=== PATIENT | female | born 1975 | race Caucasian/White ===

== ENCOUNTER → 2017-11-12 06:59 | Outpatient (CLI) | payer MEDICAID, SELFPAY ==
--- OUTSIDE RECORDS SUMMARY | 2017-11-12 07:04 | XMS RPT_ITS ---
:1975 Author Organization [facility] Care Team Providers Name Role Phone MATEUSZ BAY, MAXIMUS Peralta Attending Unavailable MAXIMUS CHILD MD Attending Unavailable LENARD JOHNSON) Attending Unavailable LENARD JOHNSON) Referring Unavailable LENARD JOHNSON) Referring Unavailable Behzad Bush Attending Unavailable Behzad Bush Primary Care Unavailable Marissa Schmitt Attending Unavailable Behzad Bush Primary Care Unavailable Duke Johnson Primary Care Unavailable SREEDHAR VIEIRA Attending Unavailable SREEDHAR VIEIRA Referring Unavailable PROBLEMS PROBLEMS DATE TYPE CONDITION / CODE ATTENDING STATUS SOURCE 11/12/2017 Unknown R07.9 - Chest pain, SREEDHAR VIEIRA Active [facility] unspecified / Community R07.9(ICD-10) Hospital Repository 10/20/2017 Active Cannabis use, NA Active [facility] unspecified, [facility] [place] uncomplicated / Repository F12.90(ICD-10) 10/20/2017 Active Other chest pain / NA Active [facility] R07.89(ICD-10) [facility] [place] Repository 10/20/2017 Active Obesity, NA Active [facility] unspecified / [facility] [place] E66.9(ICD-10) Repository 02/17/2017 Unknown ESSENTIAL (PRIMARY) Behzad Bush Active [facility] HYPERTENSION / Community I10(ICD-10) Hospital Repository PROCEDURES PROCEDURES No Procedure Records FoundRESULTS RESULTS CBC Collected: 10/20/2017 Status: F Source: [place] 12:48 PM [facility] MAIN CAMPUS REPOSITORY TYPE CODE TESTS RESULT OUT OF REFERENCE UNITS RANGE LAB WBC 3.70-11.00 k/uL WBC 9.14 LAB RBC High 3.90-5.20 m/uL RBC 5.45 LAB HGB High 11.5-15.5 g/dL Hemoglobin 16.0 LAB HCT High 36.0-46.0 % Hematocrit 49.5 LAB MCV 80.0-100.0 fL MCV 90.8 LAB MCH 26.0-34.0 pG MCH 29.4 LAB MCHC 30.5-36.0 g/dL MCHC 32.3 LAB RDWCV 11.5-15.0 % RDW-CV 13.2 LAB PLTCT 150-400 k/uL Platelet 346 Count LAB MPV 9.0-12.7 fL MPV 11.0 LAB ABSNUC <0.01 k/uL Absolute nRBC <0.01 Performed By: #### CBC, CMP, LIPB, HBA1C ####[facility] [address] [place], [place] [phone] COMP METABOLIC PANEL Collected: 10/20/2017 Status: F Source: [place] 12:48 PM [facility] REPOSITORY TYPE CODE TESTS RESULT OUT OF REFERENCE UNITS RANGE LAB TP 6.3-8.0 g/dL Protein, Total 7.4 LAB ALB 3.9-4.9 g/dL Albumin 4.5 LAB CA 8.5-10.2 mg/dL Calcium, Total 9.5 LAB TBIL 0.2-1.3 mg/dL Bilirubin, 0.5 Total LAB ALKP 32-117 U/L Alkaline 116 Phosphatase LAB AST 13-35 U/L AST 17 LAB GLU 74-99 mg/dL Glucose 95 Result Comment: The [place] Diabetes Association (ADA) provides guidance for cutoff values for fasting glucose and random glucose. The ADA defines fasting as no caloric intake for at least 8 hours. Fasting plasma glucose results between 100 to 125 mg/dL indicate increased risk for diabetes (prediabetes).Fasting plasma glucose results greater than or equal to 126 mg/dL meet the criteria for diagnosis of diabetes. In the absence of unequivocal hyperglycemia, results should be confirmed by repeat testing. In a patient with classic symptoms of hyperglycemia or hyperglycemic crisis, random plasma glucose results greater than or equal to 200 mg/dL meet the criteria for diagnosis of diabetes.Reference: Standards of Medical Care in Diabetes 2016 , [place] [employer]. Diabetes Care. 2016.39(Suppl 1). LAB BUN 7-21 mg/dL BUN 9 LAB CRET 0.58-0.96 mg/dL Creatinine 0.85 LAB NA 136-144 mmol/L Sodium 142 LAB K 3.7-5.1 mmol/L Potassium 3.9 LAB CL 97-105 mmol/L Chloride 103 LAB CO2 22-30 mmol/L CO2 22 LAB AGAP 9-18 mmol/L Anion Gap 17 LAB ALT 7-38 U/L ALT 16 LAB GFRAA eGFR- Amer. >60 LAB GFRNAA . eGFR-All Other Races >60 Result Comment: eGFR (Estimated GFR) Units of measure: mL/min/1.73 meters squaredeGFR is derived from the reexpressed MDRD Study equation using the following parameters: serum creatinine, age, gender and race. The creatinine assay has been calibrated to be traceable to IDMS.An eGFR <60 mL/min/1.73m2 for >3 months is consistent with chronic kidney disease. Refer to KDOQI guidelines for clinical interpretation.In patients with unstable renal function, e.g. those with acute kidney injury, the eGFR may not accurately reflect actual GFR. Performed By: #### CBC, CMP, LIPB, HBA1C ####[facility] [place], [place] [phone] LIPID PANEL, BASIC Collected: 10/20/2017 Status: F Source: [place] 12:48 PM [facility] REPOSITORY TYPE CODE TESTS RESULT OUT OF REFERENCE UNITS RANGE LAB CHOL <200 mg/dL Cholesterol 190 Result Comment: <200 mg/dL, Desirable 200-239 mg/dL, Borderline high>239 mg/dL, High LAB TRIGLY <150 mg/dL Triglyceride 116 Result Comment: <150 mg/dL, Normal 150-199 mg/dL, Borderline high 200-499 mg /dL, High>499 mg/dL, Very high LAB HDL Low >39 mg/dL HDL-Cholesterol 38 Result Comment: 40-59 mg/dL, Acceptable>59 mg/dL, High: Negative risk factor for coronary heart disease<40 mg/dL, Low: Positive risk factor for coronary heart disease LAB LDL High <100 mg/dL LDL-Cholesterol 129 Result Comment: <100 mg/dL, Optimal 100-129 mg/dL, Near optimal/above optimal 130-159 mg/dL, Borderline high 160-189 mg/dL, High>189 mg/dL, Very highSecondary prevention optimal LDL Cholesterol levels are recommended to be < 70 mg/dL LAB NONHDL High <130 mg/dL Non HDL Cholesterol 152 Result Comment: <130 mg/dL, Optimal 130-159 mg/dL, Near optimal/above optimal 160-189 mg/dL, Borderline high 190-219 mg/dL, High>219 mg/dL, Very highSecondary prevention optimal non HDL Cholesterol levels are recommended to be < 100 mg /dL LAB FT hrs Fasting Time 13 LAB VLDL <30 mg/dL VLDL Cholesterol 23 LAB TCHDL <5.10 TC:HDL Ratio 5.00 LAB LDLHDL High <2.54 LDL:HDL Ratio 3.39 Result Comment: Reference:1. National Cholesterol Education Program ATP III Guideline At-A-Glance Quick Desk Reference: National Heart, Lung, and Blood [place]. National Institutes of Health. 2001: NIH Publication No. 01-3305.2. An International Atherosclerosis Society position paper: global recommendations for the management of dyslipidemia: executive summary, Atherosclerosis. 2014: 232(2):410-413. Performed By: #### CBC, CMP, LIPB, HBA1C ####[facility] [address] [place], [place] [phone] HEMOGLOBIN A1C Collected: 10/20/2017 Status: F Source: [place] 12:48 PM [facility] REPOSITORY TYPE CODE TESTS RESULT OUT OF REFERENCE UNITS RANGE LAB HGBA1C 4.3-5.6 % Hemoglobin 5.2 A1c LAB HBA0 mg/dL Est. Average 103 Glucose Result Comment: eAG: (Estimated average glucose) is a calculated value from HgbA1c and is sales representative door to door of the average blood glucose level in the last 2-3 month period. Performed By: #### CBC, CMP, LIPB, HBA1C ####[facility] [place], [place] [phone] TOXICOLOGY SCREEN,UR Collected: 10/20/2017 Status: F Source: [place] 12:47 PM [facility] REPOSITORY TYPE CODE TESTS RESULT OUT OF REFERENCE UNITS RANGE LAB UPCP2 Negative Negative Phencyclidin e, Urine Result Comment: Cutoff threshold at 25 ng/mL.Cross reactivity with other substances can occur with immunoassay screening. In house validation testing showed 80% of preliminary positive samples were confirmed by mass spectrometry (high specificity, quantitative) testing. Greater than 99% of negative screen results were confirmed by mass spectrometry (high specificity, quantitative) testing. LAB UBENZ2 Negative Benzodiazepines, Ur Negative Result Comment: Cutoff threshold at 200 ng/mL.Cross reactivity with other substances can occur with immunoassay screening. In house validation testing showed 90% of preliminary positive samples were confirmed by mass spectrometry (high specificity, quantitative) testing. 80% of negative screen results were confirmed by mass spectrometry (high specificity, quantitative) testing. LAB UCOC2 Negative Cocaine, Negative Urine Result Comment: Cutoff threshold at 300 ng/mL.Cross reactivity with other substances can occur with immunoassay screening. In house validation testing showed greater than 99% of preliminary positive samples were confirmed by mass spectrometry (high specificity, quantitative) testing. Greater than 99% of negative screen results were confirmed by mass spectrometry (high specificity, quantitative) testing. LAB UAMPH2 Negative Amphetamines, Urine Negative Result Comment: Cutoff threshold at 1000 ng/mL.Cross reactivity with other substances can occur with immunoassay screening. In house validation testing showed 70% of preliminary positive samples were confirmed by mass spectrometry (high specificity, quantitative) testing. Greater than 99% of negative screen results were confirmed by mass spectrometry (high specificity, quantitative) testing. LAB UTHC2 Abnormal Negative Cannabinoids, Preliminary Alert Urine positive. Result Comment: Cutoff threshold at 50 ng/mL.Cross reactivity with other substances can occur wtih immunoassay screening. In house validation testing showed 80% of preliminary positive samples were confirmed by mass spectrometry (high specificity, quantitative) testing. Greater than 99% of negative screen results were confirmed by mass spectrometry (high specificity, quantitative) testing. LAB UOPI2 Negative Opiates, Negative Urine Result Comment: Cutoff threshold at 300 ng/mL.Cross reactivity with other substances can occur wtih immunoassay screening. In house validation testing showed greater than 99% of preliminary positive samples were confirmed by mass spectrometry (high specificity, quantitative) testing. 90% of negative screen results were confirmed by mass spectrometry (high specificity, quantitative) testing. LAB UBARB2 Negative Barbiturates, Urine Negative Result Comment: Cutoff threshold at 200 ng/mL.Cross reactivity with other substances can occur with immunoassay screening. In house validation testing showed greater than 99% of preliminary positive samples were confirmed by mass spectrometry (high specificity, quantitative) testing. Greater than 99% of negative screen results were confirmed by mass spectrometry (high specificity, quantitative) testing. LAB UETOH <11 mg/dL Ethanol, <11 Urine LAB UOXYC Negative Oxycodone, Negative Urine Result Comment: Cutoff threshold at 100 ng/mL.Cross reactivity with other substances can occur with immunoassay screening. In house validation testing showed greater than 99% of preliminary positive samples were confirmed by mass spectrometry (high specificity, quantitative) testing. Greater than 99% of negative screen results were confirmed by mass spectrometry (high specificity, quantitative) testing.Comment:Immunoassay screen only. Detection of any drug(s) in this urine toxicology panel is presumptive only. Intended use is for evaluation of suspected acute overdose. These tests are for medical purposes only and should not be used for compliance monitoring, legal, or forensic use.If clinically indicated, confirmation by high specificity, quantitative methodology may be requested on the same specimen through Client Services ([phone]) if contacted within 48 hours of initial testing.These tests were developed and their performance characteristics determined by [facility]'s [facility] [place] ([facility]). They have not been cleared or approved by the FDA. [facility] is regulated under CLIA as qualified to perform high complexity testing.These tests are used for clinical purposes. They should not be regarded as investigational or for research. Performed By: #### UTOX2 ####[facility] [place], [place] [phone] QUANT PAIN PANEL, Collected: 10/20/2017 Status: F Source: [place] 12:47 PM [facility]AMPUS REPOSITORY TYPE CODE TESTS RESULT OUT OF REFERENCE UNITS RANGE LAB UQCANN High <16 ng/mL 650 Cannabinoid, Urine Result Comment: Tetrahydrocannabinol carboxylic acid (THCA) is a metabolite of clapr-0-oygdadexlkeierdbicqt which is the main active component of marijuana. Presence of THCA indicates use of marijuana. LAB UQBNZL <24 ng/mL Benzoylecognine, Ur <24 Result Comment: Benzoylecognine is a metabolite of cocaine. LAB UQACMR <5 ng/mL 6-Acetylmorphine, Ur <5 Result Comment: 6-REGINA (6-monoacetylmorphine, also known as 6-acetylmorphine) is a unique metabolite of heroin. Presence of 6-REGINA indicates use of heroin. 6-REGINA is further metabolized to morphine and absence of 6-REGINA does not rule out the use of heroin. LAB UQAMPH <5 ng/mL Amphetamine, Urine <5 LAB UQMAMP <8 ng/mL Methamphetamine, Ur <8 LAB UQBUPR <20 ng/mL Buprenorphine, Ur <20 LAB UQNBUP <20 ng/mL Norbuprenorphine, Ur <20 Result Comment: Norbuprenorphine is the primary active metabolite of buprenorphine. LAB UQMTHD <16 ng/mL Methadone, <16 Urine LAB UQEDDP <6 ng/mL EDDP, Urine <6 Result Comment: EDDP is a metabolite of methadone. LAB UQTRAM <25 ng/mL Tramadol, <25 Urine LAB UQDTRM <20 ng/mL <20 Desmethyltramado l,Ur Result Comment: Desmethyltramadol is a metabolite of tramadol. LAB UQFNTL <6 ng/mL Fentanyl, Urine <6 LAB UQNFTL <6 ng/mL Norfentanyl, <6 Urine Result Comment: Norfentanyl is a metabolite of fentanyl. LAB UQCODE <11 ng/mL Codeine, <11 Urine LAB UQMORP <10 ng/mL Morphine, <10 Urine Result Comment: Morphine is a metabolite of codeine and heroin. LAB UQDCDN <5 ng/mL Dihydrocodeine, Ur <5 LAB UQHCOD <8 ng/mL Hydrocodone, Urine <8 Result Comment: Hydrocodone is a metabolite of dihydrocodeine. LAB UQOXYC <5 ng/mL Oxycodone, <5 Urine LAB UQHMOR <5 ng/mL Hydromorphone, <5 Ur Result Comment: Hydromorphone is a metabolite of hydrocodone. LAB UQOXYM <5 ng/mL Oxymorphone, Urine <5 Result Comment: Oxymorphone is a metabolite of oxycodone. LAB UQCREA >19 mg/dL Creatinine, >50 Urine LAB UQPH 4-10 pH, Urine 4-10 LAB UQSPGR 1.005-1.020 Specific 1.005-1.020 [place],Ur LAB UQOXID Negative Oxidants, Urine Negative LAB UQSPQ Specimen Specimen Quality quality results within acceptable limits. LAB UQNOTE Note This test is for Medical use only. Result Comment: This test was developed and its performance characteristics determined by [facility]'s [facility] [place] (-[facility]).It has not been cleared or approved by the FDA. [facility] is regulated under CLIA as qualified to perform high-complexity testing.This test is used for clinical purposes. It should not be regarded as investigational or for research. Performed By: #### UQNTPP ####[facility] [address] [place], [place] [phone] PROGRESS Observed: 10/20/2017 Status: COMPLETED Source: [place] 12:37 PM [facility] REPOSITORY HNO ID: [id number]: Ken Nickice: (none) Author Type: (none)Type: Progress NotesFiled: 10/20/2017 1:51 PMNote Text:42 year old female here for INACTIVATED INFLUENZA VACCINE.[id number] SeasonPatient is identified by name and date of : Yes [] CONTRAINDICATIONS colorenhanced sectionAge less than 6 months? NoAllergy to eggs, chicken, chicken feathers, or chicken dander? NoAllergy to thimerosal (a preservative) or formaldehyde? NoHistory of severe reaction to any vaccine component or a previous dose ofinfluenza vaccination? NoHistory of Guillain-Rolla Syndrome within 6 weeks after a previousinfluenza vaccine? NoCurrent moderate or severe illness? NoCurrent temperature greater or equal to 100.4F? NoHistory of Bone Marrow Transplant in past 6 months or solid organtransplant in the past 3 months ? No [] VERIFICATIONcolor enhanced sectionWas the answer Yes for any of the above contraindications? Nocontraindications present. Acceptable to proceed with vaccine.Patient/ guardian agrees the above answers are true to the best of theirknowledge? YesFlu vaccine information sheet given? YesSee immunization activity in [facility] for details of immunizationsadminstered today.Patient age: [age] year old For The 2802-0535 Flu Season 6-35 months old: Fluzone 0.25 ml - IM (Preservative Free)3 years of age: Fluzone 0.5 ml - IM (Preservative Free)3 years and older: Fluzone 0.5 ml- IM-(with Preservatives)65+ years old: Fluzone High-Dose 0.5 ml - IM ( Preservative Free)REMEMBER: If patient is less than 9 years of age and this is the firstvaccine of Influenza to be received in any flu season, they should receivea second dose in one months time. PROGRESS Observed: 10/20/2017 Status: COMPLETED Source: [place] 11:12 AM [facility] REPOSITORY O ID: [id number]: Lenard Dawson) Nicolette : (none)Author Type: PhysicianType: Progress NotesFiled: 10/20/2017 1:51 PMNote Text:Chief ComplaintNo chief complaint on file.Sriram HOOD is a 42 year old female who presents here today pending sale to [facility]. Patient states that she was previously seeing in [facility]. States that she was previously treated with benzosfor anxiety symptoms and tested positive for marijuna on random drugscreen. Feels like Dr. Bush was targeting her and no longer wants to seehim. Admits to occasional marijuana use and was at [employer] recentlywhere people around her were smoking marijuana.Patient has history of depression which has been worse over the last 3weeks due to stressors at home. Admits to: feelingdown/depressed/hopeless, decreased energy/interest, difficultyconcentrating, insomnia, feeling of guilt, decreased appetite. Deniesthoughts of harming self or others. Also admits to anxiety symptoms withexcessive worrying, insomnia, racing thoughts, and panic symptoms withtremors and tachycardia. Taking Paxil as prescribed. Is not seeingcounseling or psychiatry today.Complaining of recent chest pain. Most recent episodes have felt likestabbing in center of chest radiating to neck associated with nausea,diaphoresis, lighthededness, SOB, and improved with rest. Hascardiologist, previously Dr. Child, now seeing her daughter. Has notdiscussed these symptoms with their office.Due for Tdap, Pneumovax, and influenza vaccine today. Has not had bloodwork done recently. Has not had mammogram since she turned 42 years oldand has family history of breast cancer with sister recently diagnosed.Past medical history, appointments, medications, allergies reviewed.Previous Medical HistoryPAST MEDICAL HISTORYDiagnosis Date- PMH - PAST MEDICAL HISTORY OF depression- PMH - PAST MEDICAL HISTORY OF kidney stones (able to pass on own)- PMH - PAST MEDICAL HISTORY OF Migraines- Unspecified asthma(493.90)Previous Surgical HistoryPAST SURGICAL HISTORYProcedure Laterality Date- APPENDECTOMY 2005- LAPAROSCOPIC CHOLEYCYSTECTOMY 06/2004 Cholecystectomy, lap- LIGATE FALLOPIAN TUBE 2000 Tubal ligation, lap- PAST SURGICAL HISTORY OF 2000 hysterectomyFamily HistoryFAMILY HISTORYProblem Relation Age of Onset- Prostate Cancer Maternal Grandfather- Heart Maternal Grandmother- Hypertension Paternal Grandfather- Diabetes Paternal Grandfather- Diabetes Maternal Aunt- Diabetes Paternal GrandmotherPatient AllergiesALLERGIESAllergen Reactions- Aspirin GI Upset- Cylert [Pemoline]- E-Mycin [Erythromyc* Vomiting- Morphine Hives- Penicillins Hives- Zithromax Z-Zan [Az* GI UpsetCurrent MedicationsCurrent Outpatient Prescriptions on File Prior to Visit:TEMAZEPAM 30 MG CAP Take one(1) tablet daily at bedtime as needed forsleepparoxetine hcl(PAXIL 40 MG TAB) Take one(1) tablet daily.DICYCLOMINE 10 MG CAP Take one(1) capsule three times daily.tizanidine hcl(ZANAFLEX 4 MG TAB) Take one(1) tablet four (4) times daily.DICLOFENAC 75 MG TAB, DELAYED RELEASE Take one(1) tablet two(2) timesdaily with food (Patient not taking: Reported on 10/20/2017)fluticasone propionate(FLONASE 50 MCG/ACTUATION NASAL SPRAY) Two sprayseach nostril daily, rinse mouth after (Patient not taking: Reported on10/20/2017)fexofenadine hcl(BOB 180 MG TAB) Take one(1) tablet daily. (Patientnot taking: Reported on 10/20/2017)ALBUTEROL 90 MCG/ACTUATION AEROSOL INHALER Use as directed four(4) timesdaily. (Patient not taking: Reported on 10/20/2017)COMPOUNDED PRESCRIPTION AIR CONDITIONER DX: CHRONIC ASTHMA(Patient not taking: Reported on 10/20/2017)No current facility- administered medications on file prior to visit.Social HistorySocial History Marital status : Single Spouse name: Years of education: Number of children:Social History Main Topics Smoking status: Current Every Day Smoker Packs/day: 1.00 Years: 15.00 Types: Cigarettes Smokeless status: Never Used Comment: quit 10/07 Alcohol use: No Drug use: Yes Special: MarijuanaReview of SymptomsREVIEW OF SYSTEMSGENERAL: No weight loss, malaise or feversNECK: Negative for lumps, goiter, pain and significant neck swellingRESPIRATORY: Negative for cough, hemoptysis, wheezing, COPD, dyspnea orshortness of breathCARDIOVASCULAR: Chest painGI: No nausea, vomiting, or diarrheaSKIN: Negative for lesions, rash, and itchingEXAM:BP 136/88 Pulse 64 Resp 14 Ht 158.8 cm (5' 2.5) Wt 88.9 kg (196lb) BMI 35.28 kg/j0Feisjoe Appearance: Well appearing, alert, in no acute distress,well-hydrated, well nourished..Lungs: Lungs clear to auscultation. No wheezing, rhonchi, rales.Heart: RRR without murmur, gallop, or rubs. No ectopy.Abdomen: Normal abdominal exam, Abdomen soft, non-tender. Bowel soundsnormal. No masses, organomegaly.Extremities: No deformities, edema, skin discoloration, clubbing orcyanosis. Good capillary refill. .Health Maintenance ListTETANUS due on 1988ONE PNEUMOVAX PRIOR TO AGE 65 due on 1996PAP EVERY 5 YEARS due on 2007HPV EVERY 5 YEARS due on 2007INFLUENZA(1) due on 2016MAMMOGRAM due on 2017Data reviewedEKG: sinus bradycardia at 58 bpm with short OH and nonspecific STabnormality (inverted t wave in V2)ASSESSMENT/PLAN:1. Moderate episode of recurrent major depressive disorder (HCC) - ICD9:296.32, ICD10: F33.1 ( primary diagnosis)Increase paxil to 50 mg daily. Will refer to counseling and psychiatry forfurther evaluation and treatment. To call if not improving in next 4-6weeks with increased dose.- CONSULT TO PSYCHOLOGY- CONSULT TO PSYCHIATRY2. ALEXSANDER ( generalized anxiety disorder) - ICD9: 300.02, ICD10: F41.1See above. Advised I cannot give controlled substances such as benzos ifshe is using illicit substances.- CONSULT TO PSYCHOLOGY- CONSULT TO PSYCHIATRY3. Other chest pain - ICD9: 786.59, ICD10: R07.89Chest pain of unclear etiology, patient with significant risk factor(s) offamily history of early coronary heart disease, obesity and smokingEKG shows ST changes as listed above. Will fax over to customer success intern'soffice and have patient follow up with their office for stress testing ifthese are new changes. Discussed ED evaluation if symptoms return.- ECG COMPLETE W INTERPRETATION- XR CHEST 2V FRONTAL/LAT- CBC- COMP METABOLIC PANEL4. Screening mammogram, encounter for - ICD9: V76.12, ICD10: Z12.31- Set up for mammogram, yearly mammogram recommended- REGINA SCREENING5. Marijuana use - ICD9: 305.20, ICD10: F12.90Advised cessation.- TOX SCREEN ROUT UR- PAIN PANEL, UR QUANT6. Obesity, Class II, BMI 35-39.9 - ICD9: 278.00, ICD10: E66.9Discussed improved diet and exercise.- LIPID PANEL BASIC- HGB A1C7. Need for vaccination - ICD9: V05.9, ICD10: Z23- PNEUMOCOCCAL IMMUNIZATION PPSV 23- TDAP VACCINE AGE 7+ IM- INFLUENZA VACCINE QUADRIVALENT AGE 3 YRS PLUS + IM8. DDD (degenerative disc disease), thoracolumbar - ICD9: 722.51, ICD10:M51.35Will obtain records from previous PCP. Will hold off on refilling Zanaflexuntil records return.9. DDD (degenerative disc disease), cervical - ICD9: 722.4, ICD10: M50.30Will obtain records from previous PCP. Will hold off on refilling Zanaflexuntil records return.10. Mild intermittent asthma without complication - ICD9: 493.90, ICD10:J45.20Mild intermittent Asthma stable- Albuterol MDI 2 puffs with spacer prn- Avoidance of triggers recommendedI spent 50 minutes in the visit, with more than 50% of the [id number] time of the visit in counseling / coordination of care.Lenard Johnson MD EMERGENCY DEPARTMENT Observed: 03/06/2017 Status: F Source: [place] SUMMARY 7:23 AM [facility] Records [address] [place] [place] [address]Mhafhujkq Department Occkyts98/08/17 0721MR#: [id number] Acct: [id number]: MARLENI HOOD Rep #: [id number]: 1974 41 From: Marissa Schmitt MDPCP: Behzad Bush MD Status: DEP ER - ER Visit SummaryDate of Service: 03/06/17Chi Complaint: Left knee painHistory of Present Illness: The patient is a 41 F who states she tripped on a curb earliertoday and fell landing on her left knee. She has had increasing pain and swelling. She didtake ibuprofen prior to arrival. She has been able to ambulate on her leg.Physical Examination: Vital signs are unremarkable.Head neck examination is unremarkable with no sign of trauma.Heart is regular rate and rhythm.Lungs are clear with good air movement throughout.Abdomen is soft and nontender.Lower extremity examination was ecchymosis and edema over the left anterior knee. She is ableto straight leg raise her foot off the bed. She has strong distal pulses. She has no calftenderness.Test Results: Left knee x-ray shows soft tissue swelling anteriorly. There are no osseousabnormalities noted.Emergency Department Course and Treatment: She was given [place] here for pain. She is given anAce wrap and referred to Ortho for follow-up if not improved.Disposition: HomeImpression: Fall with left knee contusionED Disposition- Plan for ED Patient:Disposition: Home or Assisted LivingChief Complaint: Lower Extremity InjuryInstructions: ED Sprain KneePrescriptions:Hydrocodone Bitart/Apap 5-325 [[place] 5/325] 1 - 2 tablet PO Q6H PRN PRN #12 tabletPRN Reason: PainReferrals:Behzad Bush MD [Primary Care Provider] - 1-2 WeeksWhat to do if you have ProblemsFor any increased pain, shortness of breath, bleeding, nausea or vomiting, chest pain, or anyunexpected problems, contact your Primary Care Provider. Call [facility] ([phone])or report to the closest Emergency Room.Call 911 if necessary.03/06/17 0723 <Electronically signed by Marissa Schmitt MD>Date Marissa Schmitt MDCosigner Signature (If Indicated): Date CC: Behzad Bush MD DISCHARGE INSTRUCTION Observed: 02/17/2017 Status: F Source: HU 5:57 PM [facility] RE[facility]ITORY [facility] [address] [place] [address]Dlvekqcol Tsslmaxqbht99/21/17 1755MR#: [id number] Acct: [id number]: SHARRIMARLENI Rep #: [id number]: 1975 41 From: Marissa Schmitt MDPCP: Behzad Bush MD Status: REG ERED Disposition- Plan for ED Patient:Disposition: Home or Assisted LivingChief Complaint: Lower Extremity InjuryInstructions: ED Sprain KneePrescriptions:Hydrocodone Bitart/ Apap 5-325 [[place] 5/325] 1 - 2 tablet PO Q6H PRN PRN #12 tabletPRN Reason: PainReferrals:Behzad Bush MD [Primary Care Provider] - 1-2 WeeksWhat to do if you have ProblemsFor any increased pain, shortness of breath, bleeding, nausea or vomiting, chest pain, or anyunexpected problems, contact your Primary Care Provider. Call [facility] ([phone])or report to the closest Emergency Room.Call 911 if necessary.02/17/171756 <Electronically signed by Marissa Schmitt MD> Date Marissa Schmitt [facility] Signature (If Indicated): Date CC: Behzad Bush MD KNEE 4 OR MORE Observed: 02/17/2017 Status: F Source: HU VIEWS 5:02 PM [facility] REPOSITORY [facility]ITALImaging [address] [place] [address]Qmdkruq 4dKnee 4 or More ViewsMR#: [id number] Acct: [id number]: MARLENI HOOD Rep #: [id number]: 1975 F 41 From: Marissa Mora MDPCP: Behzad Bush MD Status : REG ERStudy: Knee 4 or More Views Date of Exam: 02/17/17Exam# [id number] Ordering Dr: Marissa Schmitt MDSTUDY: X-RAY - LEFT KNEEREASON FOR EXAM: Female, 41 years old. Pain after fallTECHNIQUE: Four view(s) of the knee.COMPARISON: None. FINDINGS:Normal visualized distal femur. Normal visualized proximal tibia andfibula. Normal proximal tibiofibular articulation.Normal medial femorotibial compartment. Normal lateral femorotibialcompartment. Normal patellofemoral articulation. There is no fullnessabove the patella.There is soft tissue swelling below the patella. ORDER #: [id number] RAD/Knee 4 or More ViewsIMPRESSION:No acute osseous abnormalities are seen in the left knee. There is markedsoft tissue swelling anteriorly.Electronically Signed:Marissa Mora MD at 17:44 [facility] [phone], Service support , YB: Marissa Schmitt MD; Behzad Bush MD Journeyman Electrician:Signed CBC-COMPLETE BLOOD CNT Collected: 12/02/2016 Status: F Source: HU NO DIFF 10:49 AM [facility] REPOSITORY TYPE CODE TESTS RESULT OUT OF RANGE REFERENCE UNITS LAB L100.1000 Normal 4.4-11.0 K/mm3 WBC 9.9 LAB L100.1200 High 4.2-5.4 M/mm3 RBC 5.46 LAB L100.1300 High 12.0-15.0 g/dl HGB 16.2 LAB L100.1400 High 37-47 % HCT 48.9 LAB L100.1500 Normal 81-99 fL MCV 89.6 LAB L100.1600 Normal 27.0-32.0 pg MCH 29.7 LAB L100.1700 Normal 32-36 g/gl MCHC 33.1 LAB L100.1810 Normal 11.6-14.6 % RDW 13.2 CV LAB L100.1820 Normal 35.1-43.9 fl RDW 42.7 SD LAB L100.1900 Normal 150-450 K/mm3 PLT 360 LAB L100.2000 Normal 6.2-12.0 fl MPV 10.2 Performed By: #### L100.0500 ####[facility] [address] [place], [place], [address] COMPREHENSIVE METABOLIC Collected: 12/02/2016 Status: F Source: [facility] 10:49 AM [facility] REPOSITORY TYPE CODE TESTS RESULT OUT OF RANGE REFERENCE UNITS LAB L501.0100 Normal 70-110 mg/dL GLU 109 LAB L501.1000 Normal 7-18 mg/dL BUN 13 LAB L501.1100 High 0.55-1.02 mg/dL 1.06 CREAT,SERUM Result Comment: The validity of the calculated GFR AND GFRAA in patients over70 years has not been determined. Clinical correlation isessential. LAB L501.1110 Normal >60 mL/min EST GFR 61 Result Comment: Non- GFR Calc LAB L501.1115 Normal >60 mL/min EST GFR - 74 AA Result Comment: GFR Calc LAB L501.1300 Normal 10-20 RATIO BUN/CRE 12.3 LAB L501.1500 Normal 6.4-8.2 g/dL T PROT 7.6 LAB L501.1800 Normal 3.4-5.0 g/dL ALB 3.9 LAB L501.1950 High 2.3-3.5 g/dL GLOB 3.7 LAB L501.2000 Normal 0.9-2.4 RATIO A/G 1.1 LAB L501.2200 Normal 8.5-10.1 mg/dL CA 9.1 LAB L501.4100 Low 15-37 U/L AST 12 LAB L501.4305 High 45-117 U/L ALK P 133 LAB L501.4405 Normal 12-78 U/L ALT 20 LAB L501.4600 Normal 0.20-1.00 mg/dL T BILI 0.30 LAB L501.5300 Normal 136-145 mmol/L NA 138 LAB L501.5600 Normal 3.5-5.1 mmol/L K 4.2 LAB L501.5900 Normal 98-107 mmol/L CL 102 LAB L501.6100 Normal 21.0-32.0 mmol/L CO2 27.0 LAB L501.6200 Normal 5-15 GAP 9 Performed By: #### L500.4050, L500.4100 ####[facility] [address] [place], [place], [address] LIPID PROFILE Collected: 12/02/2016 Status: F Source: [place] 10:49 AM [facility] REPOSITORY TYPE CODE TESTS RESULT OUT OF RANGE REFERENCE UNITS LAB L501.4900 High 200 mg/dL CHOL 214 Result Comment: <200 mg/dL Desirable 200-240 mg/dL Borderline >240 mg/dL High Risk LAB L501.5000 Normal mg/dL TRIG 148 Result Comment: The drugs N-Acetylcysteine and Metamizole may falsely deressthis assay.Serum Triglycerides Reference Interval Normal <150 mg/dL Borderline high 150 - 199 mg/ dL High 200 - 499 mg/dL Very High > or = 500 mg/dL LAB L501.6400 Normal mg/dL HDL 51 Result Comment: The drugs N-Acetylcysteine and Metamizole may falsely deressthis assay. Reference Range HDL <40 mg/dL Low HDL Cholesterol HDL >or= 60 mg/dL High HDL Cholesterol LAB L501.6500 High 0-130 mg/dL LDL 133 LAB L501.6600 Normal 5-40 mg/dL VLDL 30 Performed By: #### L500.4050, L500.4100 ####[facility] [address] [place], [place], [address] ALLERGIES ALLERGIES DATE TYPE / CODE NAME / CODE REACTION SEVERITY SOURCE 02/17/2017 Drug Penicillins/[id number] Hives Unknown Hu Allergy/416 476(RXNORM) [facility] 302035([facility]) Repository 02/17/2017 Drug morphine/[id number] Hives Unknown Trevor Allergy/416 (RXNORM) Community 534973([facility] ED CT) Repository 02/17/2017 Drug erythromycin Hives Unknown Trevor Allergy/416 base/[id number](RXN Community 245873([facility] ED CT) Repository 02/17/2017 Drug Penicillins/[id number] Hives Trevor Allergy/416 476(RXNORM) Community 873290([facility] ED CT) Repository 02/17/2017 Drug morphine/[id number] Hives Hu Allergy/416 (RXNORM) Community 051242([facility] ED CT) Repository 02/17/2017 Drug erythromycin Hives Trevor Allergy/416 base/[id number](RXN Community 265203([facility] ED CT) Repository 2008 DRUG AZITHROMYCIN GI UPSET [facility] INGREDI/[address] [place] 940683(SNOM Repository ED CT) 07/22/2005 DRUG ASPIRIN GI UPSET [facility] INGREDI/[address] [place] 293105(SNOM Repository ED CT) 07/22/2005 DRUG PEMOLINE [facility] INGREDI/[address] [place] 976076(SNOM Repository ED CT) 07/22/2005 DRUG/419337 ERYTHROMYCIN Vomiting [facility] 003(SNOMED [address] [place]) Repository 07/22/2005 DRUG MORPHINE HIVES [facility] INGREDI/[address] [place] 022482(SNOM Repository ED CT) 07/22/2005 Drug PENICILLINS HIVES [facility] Class/03929 [address] [place] 1003(SNOMED Repository CT) ENCOUNTERS ENCOUNTERS ADMIT/DISCHARGE ACCOUNT NUMBER ADMITTING ENCOUNTER LOCATION SOURCE CLASS 11/12/2017 [id number] Ambulatory [facility] ding:[facility] Repository 10/20/2017/10/20/19 [id number] Ambulatory [address] [place] Repository 10/20/2017/10/20/19 [id number] Ambulatory [address] [place] Repository 10/20/2017/10/29/19 [id number] Ambulatory [address] [place] Repository 06/14/2017 [id number] Ambulatory BBuilding:[facility] Repository 06/10/2017/06/10/20 [id number] Ambulatory [address] ding:[facility] Repository 02/17/2017/02/18/20 [id number] Emergency Hu [address] ding:ED Repository 12/02/2016 [id number] Ambulatory [facility] ding:LAB Repository PAYERS PAYERS ENCOUNTER GUARANTOR PAYER SUBSCRIBER SOURCE 11/12/2017 [facility] Insurance:CARESOURCVIOLETA HoodDOB: [facility] shira [place] Number: [id number] [facility] [address]Cgc: [id number] Repository Date:2017-10-27[address] O () [address]ATTN: [place] [address]LL: 11/12/2017 [facility]SELF [facility]Y [facility] Number: Effective Repository Date:2017-10-27 06/14/2017 [facility] Insurance:MALACHITIMMY HOODB: [facility] MEDICAIDPolicy [id number] Repository 1 NOLD Number: 08/31 [place] [id number] [place], [place] [address]Wpj: 330) Date:2017-06-10 93686Uci: () [id number] [phone] Name:[address] ()Tel: [phone], [place] 000[address] () [phone]: 06/10/2017 MARLENI Primary [facility] HospitalJACKDOB: Insurance:MALACHITIMMY PERKINSB: [facility] MEDICAIDPolicy [id number] Repository 1/2 NOLD Number: 08/31 [place] [place], [place] [id number] [place], [place] [address]Tfi: (330) Date:2017-06-1082604Dwe: () [phone] [phone] Name:[address] (HP)Tel: [phone], [place] 000[address] () [address]HV: 02/17/2017 MARLENI HOOD611 08/31 Insurance:MALACHISSM REHABVIOLETA HOODB: [facility] nazario [address] Number: [id number] Memorial Hospital [address]Bmo: [id number] Repository Date:[address]ATTN: [place] [address]IK: 12/02/2016 MARLENI Primary MARLENI HOOD611 08/31 Insurance:[facility] CENT[facility]LETA MADDIEB: [facility] Number: [id number] Memorial Hospital [address]Wlp: [id number] Repository Date:[address] () [address]N: [place] [address]UD:
--- NOTE | 2017-11-12 10:14 | STRESSREP_ITS ---
Stress Test Report Pharmacologic myocardial perfusion stress test. 42-year-old lady with a history of chest pain. Stress protocol: Resting EKG demonstrates sinus bradycardia with a rate of 55 bpm normal intervals and noted resting blood pressure is 122/78. 0.4 mg of regadenoson was infused per usual protocol followed by rapid intravenous saline flush injection continuous EKG monitoring was performed. The maximum heart rate attained was 98 bpm which was 54% of maximum predicted heart rate the maximum workload attained was 1 metabolic equivalent. At rest there were no ST or T- wave changes noted suggest abnormal flow reserve at peak infusion no ST or T- wave changes were noted suggest abnormal flow reserve. The resting blood pressure is 122/78 with a final blood pressure 114/68. No clinical angina was noted. Myocardial perfusion protocol: 11.6 mCi of technetium 99m sestamibi was injected at rest. 0.4 mg of regadenoson was infused per usual protocol. At peak infusion 32.1 mCi of technetium 99m sestamibi was injected. Stress images were obtained stress and rest images were reconstructed and compared in the short axis vertical long horizontal long axis. Gated images were also obtained. Perfusion SPECT analysis. Review of the stress images demonstrate normal uptake of tracer noted in all areas of the myocardium. The resting images similarly demonstrate normal uptake of tracer noted in all areas of myocardium. No areas of reversibility are noted suggest ischemia no previous infarct is noted. Gated SPECT analysis. The gated ejection fraction is noted to be 79%. Conclusion: Normal pharmacologic myocardial perfusion stress test. Preserved ejection fraction.
== END ==
PROVIDERS: Family Provider Family Medicine; PCP Family Medicine
DX: R07.9 Chest pain, unspecified (principal)
CPT/HCPCS: 78452; 93017; A9500; A4216; J2785

== ENCOUNTER 2018-03-23 14:22 | Emergency (ER) | payer MEDICAID, SELFPAY ==
[2018-03-23 14:23] VITALS: BP 147/108; PULSE 87; RESP 20; TEMP 36.4; O2SAT 98; BMI 38.3
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
--- NOTE | 2018-03-23 15:58 | RAD_ITS ---
STUDY: X-RAY - RIGHT HAND REASON FOR EXAM: Female, 42 years old. Trauma TECHNIQUE: 3 view(s) of the hand. COMPARISON: None. FINDINGS: Normal radiocarpal articulation. Normal distal radioulnar joint. Negative ulnar variance is noted of uncertain clinical significance Normal visualized carpal bones. Normal carpal articulations Normal carpometacarpal articulation of the thumb. Normal second through fifth carpometacarpal joints. Normal metacarpi. Normal metacarpophalangeal joint of the thumb. Normal interphalangeal joint of the thumb. Normal proximal and distal phalanges of the thumb. Normal metacarpophalangeal joints of the second through fifth fingers. Normal proximal and distal interphalangeal joints of the second through fifth fingers. Normal phalanges of the second through fifth fingers. The soft tissue structures are unremarkable. RAD/Hand Min 3 Views IMPRESSION: No evidence for acute fracture or dislocation Electronically Signed: Sb Rosario MD at 16:53 EDT , Service support ,
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
--- NOTE | 2018-03-23 16:30 | RAD_ITS ---
STUDY: X-RAY - RIGHT HUMERUS REASON FOR EXAM: Female, 42 years old. Trauma TECHNIQUE: 2 view(s) of the humerus. COMPARISON: None. FINDINGS: Normal visualized humerus. There is no demonstrated fracture or osseous destructive process. There is questionable subluxation the proximal ulna possibly due to positioning. There is no demonstrated soft tissue abnormality. RAD/Humerus min 2 Views IMPRESSION: Normal x-ray examination of the humerus. Question possible ulna subluxation versus positioning artifact. Clinical correlation recommended Electronically Signed: Sb Rosario MD at 17:01 EDT , Service support ,
[2018-03-23] MEDS: Ketorolac 10 MG Tablet PO (16:38)
[2018-03-23] MEDS: Metoclopramide 10 MG Tablet PO (16:38)
[2018-03-23] MEDS: DiphenhydrAMINE 25 MG Capsule 50 MG PO (16:39)
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
[2018-03-23 17:42] VITALS: BP 139/93; PULSE 76; RESP 18; O2SAT 98
--- NOTE | 2018-03-23 17:43 | ED.RN ---
REVIEWED D/C INSTRUCTIONS, FOLLOW UP CARE, PRESCRIPTION, AND S/S THAT WOULD WARRANT A RETURN TO THE ED WITH PT. PT VERBALIZED AN UNDERSTANDING AND DENIES FURTHER QUESTIONS FOR THIS RN. PT SKIN P/W/D, RESP EVEN AND UNLABORED, PT A&O X 3, NO DISTRESS NOTED. PT AMBULATED OUT OF ED, GAIT STEADY.
== END 2018-03-23 17:44 | disposition home or self-care (01) ==
PROVIDERS: Emergency Provider Emergency Medicine; Family Provider Family Medicine; PCP Family Medicine
DX: S09.90XA Unspecified injury of head, initial encounter (principal); S40.021A Contusion of right upper arm, initial encounter; V53.6XXA Passenger in pick-up truck or van injured in collision with car, pick-up truck or van in traffic accident, initial encounter; Y93.9 Activity, unspecified; Y92.9 Unspecified place or not applicable; G43.909 Migraine, unspecified, not intractable, without status migrainosus; Z79.899 Other long term (current) drug therapy; Z72.0 Tobacco use
CPT/HCPCS: 70450; 72125; 73060; 73090; 73130; 99285

== ENCOUNTER → 2025-02-09 | Outpatient (CLI) | payer MEDICAID, SELFPAY | END | disposition home or self-care (01) | LOC: LABSPEC 11:09 | PROVIDERS: PCP Family Medicine; Referring Provider Nurse Practitioner Adult Health; Visit Provider Nurse Practitioner Adult Health | DX: Z00.00 Encounter for general adult medical examination without abnormal findings (principal); Z13.6 Encounter for screening for cardiovascular disorders ==